=== PATIENT | female | born 1945 | race Caucasian/White ===

== ENCOUNTER 2017-04-18 11:42 | Day surgery (SDC) | payer MEDICARE ==
--- NOTE | ~2017-04-18 | EGD ---
EGD REPORT [facility] [address] [id number] NAME: KALINA SMITH : [birth year] STATUS : REG [facility] [place] PAT#: [id number] AGE: 71 ADM/REG DATE : 04/18/17 MR#: [id number] REPORT SERV DATE: 04/18/17 DICTATED BY: LONI ROSEN DATE: 04/18/17 REPORT STATUS : Draft TRANSCRIBED BY: [facility] DATE: 04/18/17 [facility] Patient Name: Kalina Smith Date of : 1945 Attending MD: LONI ROSEN MD Procedure Date No Time: 04/18/2017 Procedure: Colonoscopy Indications: Lower abdominal pain, Functional diarrhea Referring MD: GERI NIELSEN, RONDA MCGHEE, ION PURDY, ADONAY MALONEY, BERNADETTE SRINIVASAN MD Medicines: Propofol per Anesthesia Complications: No immediate complications. Estimated blood loss: None. Procedure: Pre-Anesthesia Assessment: - After reviewing the risks and benefits, the patient was deemed in satisfactory condition to undergo the procedure. - Prior to the procedure, a History and Physical was performed, and patient medications and allergies were reviewed. The patient's tolerance of previous anesthesia was also reviewed. The risks and benefits of the procedure and the sedation options and risks were discussed with the patient. All questions were answered, and informed consent was obtained. Prior Anticoagulants: The patient has taken no previous anticoagulant or antiplatelet agents. ASA Grade Assessment: III - A patient with severe systemic disease. After reviewing the risks and benefits, the patient was deemed in satisfactory condition to undergo the procedure. After I obtained informed consent, the scope was passed under direct vision. Throughout the procedure, the patient's blood pressure, pulse, and oxygen saturations were monitored continuously. The CF [id number] was introduced through the anus and advanced to the cecum, identified by appendiceal orifice and ileocecal valve. The colonoscopy was performed without difficulty. The ileocecal valve and appendiceal orifice were photographed. The patient tolerated the procedure well. The quality of the bowel preparation was good. The bowel preparation used was split dose polyethylene glycol (PEG). Scope withdrawal time was greater than 7 minutes. Findings: The perianal and digital rectal examinations were normal. Pertinent negatives include normal sphincter tone. Non-bleeding internal hemorrhoids were found during retroflexion and EGD REPORT [address] [address] NAME: KALINA SMITH : [birth year] STATUS : REG [facility]#: [id number] AGE: 71 ADM/REG DATE : 04/18/17 MR#: [id number] REPORT SERV DATE: 04/18/17 DICTATED BY: LONI ROSEN DATE: 04/18/17 REPORT STATUS : Draft TRANSCRIBED BY: [employer] [facility] DATE: 04/18/17 were small and Grade I (internal hemorrhoids that do not prolapse). A few small-mouthed diverticula were found in the sigmoid colon, in the descending colon, in the transverse colon and in the ascending colon. Biopsies were taken with a cold forceps for histology. Estimated blood loss: none. The exam was otherwise without abnormality. Impression: - Non-bleeding internal hemorrhoids. - Mild diverticulosis in the sigmoid colon, in the descending colon, in the transverse colon and in the ascending colon. Biopsied. - The examination was otherwise normal. - Irritable bowel syndrome in the setting of fibromyalgia. Recommendation: - Discharge patient to home (ambulatory). - High fiber diet indefinitely. - Continue present medications. - Begin Metamucil one tablespoon daily to bulk stool. - Change probiotic to Align or Culturelle daily. - Await pathology results. - Collect Hemoccults on three spontaneously passed stools annually. - Repeat colonoscopy in 10 years for screening purposes. - Return to GI clinic PRN. - Patient has a contact number available for emergencies. The signs and symptoms of potential delayed complications were discussed with the patient. Return to normal activities tomorrow. Written discharge instructions were provided to the patient. Procedure Code(s): --- Professional --- 41856, Colonoscopy, flexible, proximal to splenic flexure; with biopsy, single or multiple Diagnosis Code(s): --- Professional --- K64.0, First degree hemorrhoids K58.0, Irritable bowel syndrome with diarrhea K57.30, Diverticulosis of large intestine without perforation or abscess without bleeding R10.30, Lower abdominal pain, unspecified K59.1, Functional diarrhea CPT copyright 2013 [employer]. All rights reserved. The codes documented in this report are preliminary and upon gynecology teacher review may EGD REPORT [facility] [address] [id number] NAME: KALINA SMITH : [birth year] STATUS : REG [facility] [place] PAT#: [id number] AGE: 71 ADM/REG DATE : 04/18/17 MR#: [id number] REPORT SERV DATE: 04/18/17 DICTATED BY: LONI ROSEN DATE: 04/18/17 REPORT STATUS : Draft TRANSCRIBED BY: [employer] [facility] DATE: 04/18/17 be revised to meet current compliance requirements. LONI ROSEN MD 04/18/2017 3:33 PM This report has been signed electronically. Number of Addenda: 0 Note Initiated On: 04/18/2017 2:53 PM Scope Withdrawal Time 0 hours 7 minutes 47 seconds [address] [id number]
--- NOTE | ~2017-04-18 | EGD ---
EGD REPORT [facility] [address] [address] NAME: KALINA SMITH : [birth year] STATUS : [place] [facility] [place]#: [id number] AGE: 71 ADM/REG DATE : 04/18/17 MR#: [id number] REPORT SERV DATE: 04/18/17 DICTATED BY: LONI ROSEN DATE: 04/18/17 REPORT STATUS : Draft TRANSCRIBED BY: [facility] DATE: 04/18/17 [facility] Patient Name: Kalina Smith Date of : 1945 Attending MD: LONI ROSEN MD Procedure Date No Time: 04/18/2017 Procedure: Upper GI endoscopy Indications: Gastro-esophageal reflux disease, Diarrhea Referring MD: GERI NIELSEN, RONDA MCGHEE, ION PURDY, ADONAY MALONEY, BERNADETTE SRINIVASAN MD Medicines: Propofol per Anesthesia Complications: No immediate complications. Estimated blood loss: None. Procedure: Pre-Anesthesia Assessment: - After reviewing the risks and benefits, the patient was deemed in satisfactory condition to undergo the procedure. - Prior to the procedure, a History and Physical was performed, and patient medications and allergies were reviewed. The patient's tolerance of previous anesthesia was also reviewed. The risks and benefits of the procedure and the sedation options and risks were discussed with the patient. All questions were answered, and informed consent was obtained. Prior Anticoagulants: The patient has taken no previous anticoagulant or antiplatelet agents. ASA Grade Assessment: III - A patient with severe systemic disease. After reviewing the risks and benefits, the patient was deemed in satisfactory condition to undergo the procedure. After obtaining informed consent, the endoscope was passed under direct vision. Throughout the procedure, the patient's blood pressure, pulse, and oxygen saturations were monitored continuously. The GIF [id number] was introduced through the mouth, and advanced to the jejunum. The upper GI endoscopy was accomplished without difficulty. The patient tolerated the procedure well. Findings: Mildly severe esophagitis with no bleeding was found. A 3 cm hiatus hernia was present. The gastroesophageal junction (on retroflexion) was normal. The examined duodenum was normal. Biopsies were taken with a cold forceps for histology. Estimated blood loss: none. Impression: - Mildly severe reflux esophagitis. EGD REPORT [address] [address] NAME: KALINA SMITH : [birth year] STATUS : REG [facility]#: [id number] AGE: 71 ADM/REG DATE : 04/18/17 MR#: [id number] REPORT SERV DATE: 04/18/17 DICTATED BY: LONI ROSEN DATE: 04/18/17 REPORT STATUS : Draft TRANSCRIBED BY: [facility] DATE: 04/18/17 - Hiatus hernia. - Normal gastroesophageal junction. - Normal examined duodenum. Biopsied. Recommendation: - Discharge patient to home (ambulatory). - Return to previous diet. - Continue present medications. - Increase Prilosec (omeprazole) 40 mg daily before breakfast. - Await pathology results. - Perform a colonoscopy today. - Patient has a contact number available for emergencies. The signs and symptoms of potential delayed complications were discussed with the patient. Return to normal activities tomorrow. Written discharge instructions were provided to the patient. Procedure Code(s): --- Professional --- 98355, Esophagogastroduodenoscopy, flexible, transoral; with biopsy, single or multiple Diagnosis Code(s): --- Professional --- K21.0, Gastro-esophageal reflux disease with esophagitis K44.9, Diaphragmatic hernia without obstruction or gangrene R19.7, Diarrhea, unspecified CPT copyright 2013 [employer]. All rights reserved. The codes documented in this report are preliminary and upon health information administrator review may be revised to meet current compliance requirements. LONI ROSEN MD 04/18/2017 3:09 PM This report has been signed electronically. Number of Addenda: 0 Note Initiated On: 04/18/2017 2:54 PM Scope Withdrawal Time 0 hours 0 minutes 0 seconds [id number] [id number]
[~2017-04-18 11:42] MED LIST: C25 PO; DOXEPIN HCL150 MG PO; FESO4 PO; FLORASTOR250 MG PO; HEMOCYTE324 MG PO; LOP25 PO; NEUR800 PO; PCET PO; PRILOSEC OTC20 MG PO; SYN125 PO; V5 PO; VANC125UDL PO; ZOLOFT25 MG PO
== END 2017-04-18 23:59 | disposition home or self-care (01) ==
LOC: DMU 11:42
PROVIDERS: Internal Medicine Gastroenterology
PROC: 0DBM8ZX Excision of Descending Colon, Via Natural or Artificial Opening Endoscopic, Diagnostic (ICD-10-PCS; 2017-04-18)
PROC: 0DB98ZX Excision of Duodenum, Via Natural or Artificial Opening Endoscopic, Diagnostic (ICD-10-PCS; 2017-04-18)
PROC: 0DBK8ZX Excision of Ascending Colon, Via Natural or Artificial Opening Endoscopic, Diagnostic (ICD-10-PCS; principal; 2017-04-18 13:30)
PROC: 0DBL8ZX Excision of Transverse Colon, Via Natural or Artificial Opening Endoscopic, Diagnostic (ICD-10-PCS; 2017-04-18 13:30)
DX: K58.0 Irritable bowel syndrome with diarrhea (principal); K64.0 First degree hemorrhoids; K57.30 Diverticulosis of large intestine without perforation or abscess without bleeding; K21.0 Gastro-esophageal reflux disease with esophagitis; K44.9 Diaphragmatic hernia without obstruction or gangrene; E03.9 Hypothyroidism, unspecified; G43.909 Migraine, unspecified, not intractable, without status migrainosus; F32.9 Major depressive disorder, single episode, unspecified; F41.9 Anxiety disorder, unspecified; L30.9 Dermatitis, unspecified; M19.90 Unspecified osteoarthritis, unspecified site; M79.7 Fibromyalgia; G57.90 Unspecified mononeuropathy of unspecified lower limb; H91.90 Unspecified hearing loss, unspecified ear; Z98.42 Cataract extraction status, left eye; Z96.652 Presence of left artificial knee joint; Z90.710 Acquired absence of both cervix and uterus; Z90.49 Acquired absence of other specified parts of digestive tract; Z96.651 Presence of right artificial knee joint; Z98.41 Cataract extraction status, right eye; Z96.1 Presence of intraocular lens; Z87.442 Personal history of urinary calculi; Z86.69 Personal history of other diseases of the nervous system and sense organs; Z87.01 Personal history of pneumonia (recurrent); Z88.0 Allergy status to penicillin; Z88.5 Allergy status to narcotic agent
CPT/HCPCS: 88305; J2405